=== PATIENT | female | born 1985 | race Caucasian/White ===

== ENCOUNTER 2017-04-24 08:15 | Inpatient (IN) | payer OTHER ==
[~2017-04-24] VITALS: Ht 154.9 cm; Wt 56.7 kg
[2017-04-24] MEDS ORDERED: ANTICONCEPTIC PO (11:00)
== END 2017-04-28 13:54 | disposition home or self-care (01) | DRG 621 ==
LOC: O/R 04-27 05:50 → SURH 04-27 07:00
PROVIDERS: Plastic Surgery; Surgery
PROC: 0J080ZZ Alteration of Abdomen Subcutaneous Tissue and Fascia, Open Approach (ICD-10-PCS; principal; 2017-04-27 11:00)
PROC: 0WQF0ZZ Repair Abdominal Wall, Open Approach (ICD-10-PCS; 2017-04-27 11:00)
DX: E65 Localized adiposity (principal); K42.9 Umbilical hernia without obstruction or gangrene